=== PATIENT | male | born 1945 | race Caucasian/White ===

== ENCOUNTER 2018-01-08 16:53 | Inpatient (IN) | payer OTHER, BC ==
[~2018-01-08] VITALS: Ht 177.8 cm; Wt 49.9 kg
[2018-01-08] VITALS (18 sets, daily range): BP systolic 83–167; BP diastolic 52–102
--- NOTE | ~2018-01-08 | 2DMMODE ---
[facility] [place] [address] 2 D/M-MODE ECHOCARDIOGRAM Name: KRAIG MOROCHO Room #: 246-P ADM IN M.R.#: [id number] Admission: 01/08/18 Attend Phys: Tamy Ontiveros Discharge: Date of : 41 Date of Service: 01/09/18 1207 Report #: [id number] THIS REPORT FOR: //name// APPROVED REPORT Study performed: 01/09/2018 10:41:00 EXAM: Comprehensive 2D, Doppler, and color-flow Echocardiogram Patient Location: ICU Room #: [facility] Status: on-call BSA: 1.60 HR: 103 bpm BP: 108/73 mmHg Other Information Study Quality: Adequate Indications COPD Dyspnea 2D Dimensions IVC: 20.00 mm Aortic Valve AoV Peak Tomas.: 1.04 m/s AO Peak Gr.: 4.36 mmHg LVOT Max P.27 mmHg LVOT Max V: 0.90 m/s Mitral Valve E/A Ratio: 0.5 MV Decel. Time: 358.72 ms MV E Max Tomas.: 0.62 m/s MV A Tomas.: 1.18 m/s MV PHT: 104.03 ms IVRT: 155.71 ms Pulmonary Valve PV Peak Tomas.: 0.88 m/s PV Peak Gr.: 3.07 mmHg IL End Vmax: 2.80 m/s Pulmonary Vein P Vein S: 0.80 m/s P Vein A: 0.43 m/s P Vein D: 0.55 m/s P Vein A Dur.: 86.5 msec [facility] [address] [place] [address] 2 D/M-MODE ECHOCARDIOGRAM Name: VALERIE MOROCHODino Acevedo Room #: 246-P [facility] IN [facility]#: [id number] Admission: 01/08/18 Attend Phys: Tamy Ontiveros Discharge: Date of : 41 Date of Service: 01/09/18 1207 Report #: [id number] P Vein S/D Ratio: 1.45 Tricuspid Valve TR Peak Tomas.: 4.33 m/s TR Peak Gr.: 75.10 mmHg PA Pressure: 85.00 mmHg Left Ventricle The left ventricle is normal size. Flattened septum consistent with right ventricular pressure overload. There is normal left ventricular wall thickness. The left ventricular systolic function is normal. The left ventricular ejection fraction is within the normal range. LVEF is 55-60%. Grade I - abnormal relaxation pattern. Right Ventricle Right ventricle is dilated. Right ventricle is hypokinetic. Atria The left atrium size is normal. Right atrium is dilated. Aortic Valve The aortic valve is sclerotic. No aortic regurgitation is present. There is no aortic valvular stenosis. Mitral Valve The mitral valve is normal in structure. There is no mitral valve regurgitation noted. No evidence of mitral valve stenosis. Tricuspid Valve The tricuspid valve is normal in structure. There is mild to moderate tricuspid regurgitation. Estimated PAP 85 mmHg. There is severe pulmonary hypertension. Pulmonic Valve The pulmonary valve is normal in structure. Mild to moderate pulmonic regurgitation. Great Vessels The aortic root is normal in size. IVC is dilated and collapses >50% with inspiration. Pericardium There is no pericardial effusion. <Conclusion> [facility] [address] [place] [address] 2 D/M-MODE ECHOCARDIOGRAM Name: KRAIG MOROCHO Curtis Room #: 246-P [facility] IN [facility].#: [id number] Admission: 01/08/18 Attend Phys: Tamy Ontiveros Discharge: Date of : 41 Date of Service: 01/09/181206 Report #: [id number] The left ventricular systolic function is normal. Flattened septum consistent with right ventricular pressure overload. LVEF 55-60%. Right ventricle is dilated and hypokinetic. Right atrium is dilated. The aortic valve is sclerotic. No aortic regurgitation or stenosis The mitral valve is normal in structure. No mitral valve regurgitation noted. There is mild to moderate tricuspid regurgitation. Estimated pulmonary artery pressure of 85 mmHg. There is no pericardial effusion. <ELECTRONICALLY SIGNED> By: Isreal Cosme MD, [facility] 01/09/181206 06 1207 Isreal Cosme MD, FACC /INF
--- NOTE | ~2018-01-08 | HC ---
[facility] [address] [address] CONSULTATION Name: KRAIG MOROCHO Room #: 246-P [facility] IN M.R.#: [id number] Admission: 01/08/18 Attend Phys: Tamy Kay Discharge: Date of : 41 Report #: [id number] THIS REPORT FOR: //name// CC: Tamy Kay NO PCP PULMONARY CONSULTATION REFERRING PHYSICIAN: Dr. Kay. REASON FOR REFERRAL: Acute respiratory failure. HISTORY OF PRESENT ILLNESS: The patient is a 72-year-old white male who presented to the Emergency Room by ambulance with acute respiratory distress. A Pulmonary consultation was requested. The patient has known COPD. He was in his usual state of health until about 2 weeks ago, when he started to notice increasing dyspnea. With marked worsening symptoms, they called 911. Currently, he is on BiPAP, resting. He appears emaciated. He appears cachectic. He is arousable, but appears quite weak. The patient does have a medical directive, he desires a DNR. PAST MEDICAL HISTORY: Notable for COPD, hypertension and hypercholesterolemia. PAST SURGICAL HISTORY: Noncontributory. ALLERGIES: None noted. HOME MEDICATIONS: Lopressor, Lipitor, aspirin, Ventolin and no other inhalers. FAMILY HISTORY: Unknown. SOCIAL HISTORY: The patient has smoked in the past, but quit some time ago. REVIEW OF SYSTEMS: Notable for malnutrition, cachexia, generalized debility and weakness. REVIEW OF SYSTEMS: Deferred as the patient is in mild respiratory distress and currently on BiPAP. PHYSICAL EXAMINATION: GENERAL: On examination, He is arousable, appears weak. VITAL SIGNS: Temperature is 97.5 degrees Fahrenheit, pulse is 80, respiratory rate is 20, blood pressure 100/60 mmHg and saturation 97%. [facility] [address] [place] [address] CONSULTATION Name: KRAIG MOROCHO Room #: 246-P [facility] IN .R.#: [id number] Admission: 01/08/18 Attend Phys: Tamy Kay Discharge: Date of : 41 Report #: [id number] HEENT: Normocephalic, atraumatic. NECK: Supple, without any lymphadenopathy or thyromegaly. CHEST: Breath sounds are decreased bilaterally, with mildly prolonged expiratory phase. Mild expiratory wheezes area heard in the bases. A few scattered crackles. CARDIOVASCULAR: Normal S1, S2. No murmurs or gallops. There is no JVD. There is no carotid bruit. Pulses are 2+/4+ bilaterally. ABDOMEN: Soft, nontender. No masses felt. GENITOURINARY: Deferred. RECTAL: Deferred. EXTREMITIES: There is no edema, cyanosis or clubbing. GENERAL APPEARANCE: Notable for moderate cachexia with muscle wasting. LABORATORY DATA: Portable chest x-ray shows diffuse bilateral patchy infiltrates, bullous changes are noted bilaterally with some evidence of pulmonary fibrosis. Electrolytes are normal; creatinine 0.8. WBC 13,900, hemoglobin is 13.7 and platelets are normal. Arterial blood gas on admission revealed pH of 7.38, pCO2 of 57 and pO2 43 on 100% FIO2. Followup arterial blood gas revealed pH of 7.37, pCO2 of 62, pO2 88 on 100% FiO2. IMPRESSION: 1. Nbhyr-fg-otqvjel hypercapnic, hypoxic respiratory failure in this 72-year-old white male. Chest x-ray shows extensive bilateral patchy infiltrates along with bullous disease and pulmonary fibrosis. Suspect the patient has chronic infiltrates along with interstitial lung disease. Cannot rule out pneumonia along with exacerbation of chronic obstructive pulmonary disease as a cause. 2. Chronic obstructive pulmonary disease, severity unknown, but suspect it is severe. 3. Chronic hypercapnic respiratory failure. 4. Severe malnutrition with cachexia. The patient appears to have lost moderate amount of weight over unknown time period. 5. History of coronary artery disease, status post coronary artery bypass surgery. 6. Remote history of tobacco use. 7. 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 MEDICAL DIRECTIVES: He desires a DNR. RECOMMENDATIONS: Agree with current medical treatment plans. Continue noninvasive positive pressure ventilation as tolerated, keep saturation 90%, but would also try to be cautious in avoiding paradoxical hypercapnia. Would also continue broad-spectrum antibiotics. It is unclear if he has been hospitalized elsewhere in the city. If no recent hospitalization within the past 3 months, the patient could be treated for usual community-acquired pneumonia, though aspiration is likely in this patient. Corticosteroids and bronchodilators will [address] [address] CONSULTATION Name: KRAIG MOROCHO Curtis Room #: 246-P [facility] IN M.R.#: [id number] Admission: 01/08/18 Attend Phys: Tamy Kay Discharge: Date of : 41 Report #: [id number] be continued. DVT and GI prophylaxis will be addressed. In terms of nutritional status, this will be difficult as it appears the patient has severe underlying pulmonary impairment, resulting in probable pulmonary cachexia syndrome, resulting in moderately severe malnutrition. Nutritional support will be recommended, though overcoming this problem is quite difficult. Overall, prognosis felt to be guarded and I do concur with DNR status. Should the patient appear to be suffering despite our treatment, I would then recommend palliative or hospice care at that time. Thank you for this consultation. <ELECTRONICALLY SIGNED> By: Rasheed Falk MD 01/09/18 1431 0918 1332 Rasheed Falk MD /nt
--- NOTE | ~2018-01-08 | EKG ---
[facility] [place] [address] ELECTROCARDIOGRAM REPORT Name: KRAIG MOROCHO V Room #: [facility].#: [id number] Admission: Attend Phys: Discharge: Date of : 41 Report #: [id number] THIS REPORT FOR: //name// [facility] ED Test Date: 2018-01-08 Test Time: 16:56:47 Pat Name: KRAIG MOROCHO Department: Room: Gender: M Manager Group: stuart : 1945 Requested By: Avinash Sanchez Order Number: [id number] MD: Isreal Cosme Measurements Intervals [place] Rate: 103 P: 84 SC: 112 QRS: 42 QRSD: 104 T: -89 QT: 349 QTc: 457 Interpretive Statements Sinus tachycardia Biatrial enlargement Low voltage, extremity leads Left ventricular hypertrophy Abnormal T, consider ischemia, diffuse leads No previous ECG available for comparison Electronically Signed On 01-08-2018 17:29:20 CDT by Isreal Cosme [email or web address] <ELECTRONICALLY SIGNED> By: Isreal Cosme MD, [facility] 01/08/18 1729 1656 1656 Isreal Cosme MD, FACC /EPI
[2018-01-08 17:28] LABS: BE(vivo) 6.7 mmol/L (-2 to +3); HCO3 33.5 mmol/L (22.0-26.0); PCO2 57.3 mmHg (35.0-45.0); PO2 43.4 mmHg (80.0-100.0); pH 7.385 (7.360-7.450); sO2 77.5 % (92.0-98.0)
[2018-01-08 18:03] LABS: HEMATOCRIT 41.5 % (42.0-52.0); HEMOGLOBIN 13.7 gm/dL (14.0-18.0); MCH 30.4 pg (26.0-34.0); MCHC 32.9 g/dL (28.0-37.0); MCV 92.2 fL (80.0-100.0); RBC 4.5 mil/uL (4.50-6.00); RDW 13.8 % (10.5-14.5); WBC 13.8 thou/uL (4.0-11.0)
[2018-01-08 18:10] LABS: ANION GAP 0 mmol/L (7-16); BUN 20 mg/dL (7-18); CALCIUM 8.4 mg/dL (8.5-10.1); CHLORIDE 102 mmol/L (98-107); CO2 39 mmol/L (21-32); CREATININE 0.8 mg/dL (0.7-1.3); GLUCOSE 216 mg/dL (74-106); POTASSIUM 4.3 mmol/L (3.5-5.1); SODIUM 141 mmol/L (136-145)
[2018-01-08 18:19] LABS: TROPONIN-I < 0.04 ng/mL (<0.06)
[2018-01-08] MEDS ORDERED: LOPRESSOR25 PO (18:19)
[2018-01-08] MEDS ORDERED: ASPIRIN81 M2 PO (18:20)
[2018-01-08] MEDS ORDERED: ATORVASTATIN CA40 MG PO (18:20)
[2018-01-08] MEDS ORDERED: VENTOLIN HFA 1818 GM INH (18:21)
[2018-01-09] VITALS (85 sets, daily range): BP systolic 61–134; BP diastolic 52–96
[2018-01-09 05:01] LABS: BE(vivo) 8.3 mmol/L (-2 to +3); PCO2 62.9 mmHg (35.0-45.0); PO2 88.8 mmHg (80.0-100.0); pH 7.375 (7.360-7.450); sO2 96.3 % (92.0-98.0)
[2018-01-10] VITALS (26 sets, daily range): BP systolic 87–132; BP diastolic 53–107
[2018-01-10 05:21] LABS: BE(vivo) 8.6 mmol/L (-2 to +3); HCO3 32.9 mmol/L (22.0-26.0); PCO2 44.1 mmHg (35.0-45.0); PO2 80.7 mmHg (80.0-100.0); sO2 96.6 % (92.0-98.0)
[2018-01-10 05:46] LABS: HEMATOCRIT 28.5 % (42.0-52.0); MCH 30.8 pg (26.0-34.0); MCHC 34.1 g/dL (28.0-37.0); MCV 90.5 fL (80.0-100.0); RBC 3.15 mil/uL (4.50-6.00); RDW 13.7 % (10.5-14.5)
[2018-01-10 05:54] LABS: CALCIUM 8.3 mg/dL (8.5-10.1); CREATININE 0.7 mg/dL (0.7-1.3); HEMOGLOBIN 9.7 gm/dL (14.0-18.0); POTASSIUM 4.5 mmol/L (3.5-5.1)
== END 2018-01-10 17:02 | DRG 177 ==
LOC: ER 16:53 → EROBS 18:22 → ICU 19:57
PROVIDERS: Emergency Medicine; Hospitalist; Internal Medicine Pulmonary Disease
PROC: 5A09357 Assistance with Respiratory Ventilation, Less than 24 Consecutive Hours, Continuous Positive Airway Pressure (ICD-10-PCS; principal; 2018-01-08)
PROC: 02HV33Z Insertion of Infusion Device into Superior Vena Cava, Percutaneous Approach (ICD-10-PCS; principal; 2018-01-08)
PROC: 5A09357 Assistance with Respiratory Ventilation, Less than 24 Consecutive Hours, Continuous Positive Airway Pressure (ICD-10-PCS; 2018-01-10)
DX: J69.0 Pneumonitis due to inhalation of food and vomit (principal); J96.22 Acute and chronic respiratory failure with hypercapnia; J96.21 Acute and chronic respiratory failure with hypoxia; E43 Unspecified severe protein-calorie malnutrition; Z68.1 Body mass index [BMI] 19.9 or less, adult; J44.0 Chronic obstructive pulmonary disease with (acute) lower respiratory infection; Z66 Do not resuscitate; I25.10 Atherosclerotic heart disease of native coronary artery without angina pectoris; J84.10 Pulmonary fibrosis, unspecified; I10 Essential (primary) hypertension; E78.00 Pure hypercholesterolemia, unspecified; Z51.5 Encounter for palliative care; Z87.891 Personal history of nicotine dependence; Z95.1 Presence of aortocoronary bypass graft
CPT/HCPCS: 10078; 27000